=== PATIENT | male | born 1995 | race Caucasian/White ===

== ENCOUNTER 2018-12-31 12:32 | Inpatient (IN) | payer OTHER ==
[~2018-12-31] VITALS: Ht 180.3 cm; Wt 81.3 kg
[2018-12-31 13:28] LABS: BASO % 0 % (0-3); EOS % 0 % (0-3); HEMATOCRIT 43.3 % (39.0-53.0); HEMOGLOBIN 14.7 g/dL (13.0-17.5); LYMPH # 0.8 x10^3/uL (1.0-4.8); LYMPH % 6 % (24-48); MEAN CORPUSCULAR HEMOGLOBIN 30 pg (25-35); MEAN CORPUSCULAR HGB CONC 34 g/dL (31-37); MEAN CORPUSCULAR VOLUME 87 fL (79-100); MONO # 0.7 x10^3/uL (0.0-1.1); MONO % 5 % (0-9); NEUT # 12.7 x10^3/uL (1.8-7.7); NEUT % 89 % (31-73); PLATELET COUNT 249 x10^3/uL (140-400); RED BLOOD COUNT 4.97 x10^6/uL (4.30-5.70); RED CELL DISTRIBUTION WIDTH 14.2 % (11.5-14.5); WHITE BLOOD COUNT 14.3 x10^3/uL (4.0-11.0)
[2018-12-31 13:37] LABS: CALCIUM 8.6 mg/dL (8.5-10.1); CREATININE 0.9 mg/dL (0.7-1.3); GFR 103.7; POTASSIUM 4.2 mmol/L (3.5-5.1)
[2018-12-31 13:42] LABS: ALBUMIN 4.4 g/dL (3.4-5.0); ALBUMIN/GLOBULIN RATIO 1.2 (1.0-1.7); TOTAL BILIRUBIN 0.2 mg/dL (0.2-1.0)
[2018-12-31 13:57] LABS: BARBITURATES NEG (NEG); BENZODIAZEPINES NEG (NEG); CANNABINOIDS NEG (NEG); COCAINE NEG (NEG); METHADONE NEG (NEG); OPIATES NEG (NEG); PHENCYCLIDINE NEG (NEG)
[2018-12-31 13:58] LABS: AMPHETAMINE/METHAMPHETAMINE NEG (NEG)
[2018-12-31] MEDS ORDERED: VANCOMYCIN 1GM IVPB FOR OMNI 250 ML IV ONE (14:00)
[2018-12-31 14:27] LABS: % BANDS 8 % (0-9); % LYMPHS 7 % (24-48); % MONOS 4 % (0-10); % SEGS 81 % (35-66)
[2018-12-31 14:29] LABS: PLT ESTIMATE ADEQUATE (ADEQUATE)
[2018-12-31] MEDS ORDERED: fentaNYL PF VIAL 100 MCG/2 ML VIAL IV ONE (14:30)
[2018-12-31] MEDS ORDERED: VANCOMYCIN 2 GM in IV NORMAL SALINE 500ML BAG 500 ML IV ONE (14:30)
[2018-12-31] MEDS ORDERED: FAMOTIDINE 20 MG/2 ML VIAL IVP ONE (14:30)
[2018-12-31] MEDS ORDERED: IOHEXOL 300 MG/ML 100ML VIAL. IV ONE (14:30)
[2018-12-31] MEDS ORDERED: IV NORMAL SALINE 1000ML BAG 1,000 ML IV SCH ×2 (14:30→19:45)
[2018-12-31] MEDS ORDERED: methylPREDNISolone SOD SUCC PF 125 MG/2 ML VIAL. IV ONE (14:30)
[2018-12-31] MEDS ORDERED: PIPERACILLIN/TAZOBACTAM 3.375 GM in IV NORMAL SALINE 50ML 50 ML IV ONE (14:30)
[2018-12-31] MEDS ORDERED: diphenhydrAMINE 50 MG/ML VIAL IV ONE (14:30)
--- NOTE | 2018-12-31 14:40 | RAD ---
CT HEAD AND MAXILLOFACIAL with contrast Indication: Acute left facial edema, no known injury. Exposure: One or more of the following individualized dose reduction techniques were utilized for this examination: 1. Automated exposure control 2. Adjustment of the mA and/or kV according to patient size 3. Use of iterative reconstruction technique. Technique: Standard imaging obtained after intravenous contrast administration, as per request. Head: No evidence of acute intraparenchymal hematoma. However, difficult to confidently exclude intracranial or extra-axial hemorrhage given the postcontrast technique and intracranial enhancement. No obvious mass effect or midline shift. No abnormal enhancement is suggested. Ventricles and sulci are symmetric. No evidence of acute skull abnormality. Minimal mucosal thickening right maxillary sinus. Soft tissue swelling of the left periorbital region and extending into the left frontal scalp. Orbits appear grossly intact. IMPRESSION: 1. Swelling and density within the left periorbital tissues and left frontal scalp. Given the acute presentation, this could represent soft tissue edema, cellulitis or hemorrhage depending on clinical correlation. 2. No definite acute intracranial abnormality although intracranial hemorrhage could be difficult to exclude given postcontrast technique. If of concern, consider follow-up CT head after contrast clearance. Facial bones: Mild mucosal thickening of the right maxillary sinus. Left maxillary sinus, ethmoid sinuses, sphenoid sinus and frontal sinus are clear. No fluid levels are seen. Orbits appear unremarkable. No evidence of aggressive bone destruction. IMPRESSION: Mild right maxillary sinus mucosal thickening. Electronically signed by: Mo Puente MD (12/31/2018 2:37 PM) [facility]
--- NOTE | 2018-12-31 15:38 | PHYS DOC ---
Past Medical History Past Medical History: No Pertinent History Alcohol Use: Heavy Drug Use: Other Social History Narrative: PT USES DUSTER Adult General Chief Complaint Chief Complaint: facial swelling HPI HPI Patient is a 23 year old male who presents with complaining of facial swelling. Patient complaining of gradual onset of left facial and periorbital edema and pain that started about couple hours ago and gradually getting force and unable to open his left eye. Patient denies using any medication and and detergent, history of the same problem, shortness of breath, problems swallowing, fever and chills, chest pain. Patient brother -in-law states he was in his bed with a bottle of beer on his hand but was alert and oriented. Patient had history of cocaine abuse but denies using drugs today. [id number]-yst state he used duster spray today. Review of Systems Review of Systems Constitutional: Denies fever or chills [] Eyes: Denies change in visual acuity, redness, or eye pain [] HENT: Denies nasal congestion or sore throat [] Respiratory: Denies cough or shortness of breath [] Cardiovascular: No additional information not addressed in HPI [] GI: Denies abdominal pain, nausea, vomiting, bloody stools or diarrhea [] : Denies dysuria or hematuria [] Musculoskeletal: Denies back pain or joint pain [] Integument: Reports facial edema and erythema Neurologic: Denies headache, focal weakness or sensory changes [] Endocrine: Denies polyuria or polydipsia [] All other systems were reviewed and found to be within normal limits, except as documented in this note. Current Medications Current Medications Current Medications Medications (Trade) Dose Ordered Sig/Taylor Start Time Stop Time Status Last Admin Dose Admin Vancomycin HCl 250 ml @ 250 mls/hr 1X ONCE 12/31/18 14:00 12/31/18 14:59 UNV Allergies Allergies Allergies Coded Allergies Type Severity Reaction Last Updated Verified Sulfa (Sulfonamide Antibiotics) Allergy Unknown 12/31/18 Yes Physical Exam Physical Exam Constitutional: Well developed, well nourished, mild distress, non-toxic arnel earance, smell of alcohol on breath. [] HENT: Normocephalic, atraumatic, moderate to severe. Orbital edema and erythema extending to forehead and right cheek without sign of abscess. Eyes: PERRLA, EOMI, conjunctiva normal, no discharge. [] Neck: Normal range of motion, no tenderness, supple, no stridor. [] Cardiovascular:Heart rate regular rhythm, no murmur [] Lungs & Thorax: Bilateral breath sounds clear to auscultation [] Back: No tenderness, no CVA tenderness. [] Extremities: No tenderness, no cyanosis, no clubbing, ROM intact, no edema. [] Neurologic: Alert and oriented X 3, no focal deficits noted. [] Psychologic: Affect normal, judgement normal, mood normal. [] Current Patient Data Vital Signs Vital Signs Date Time Temp Pulse Resp B/P (MAP) Pulse Ox O2 Delivery O2 Flow Rate FiO2 12/31/18 12:55 97.6 74 20 153/86 (108) 95 Room Air 97.6 Lab Values Laboratory Tests Test 12/31/18 13:15 12/31/18 13:40 White Blood Count 14.3 x10^3/uL (4.0-11.0) H Red Blood Count 4.97 x10^6/uL (4.30-5.70) Hemoglobin 14.7 g/dL (13.0-17.5) Hematocrit 43.3 % (39.0-53.0) Mean Corpuscular Volume 87 fL (79-100) Mean Corpuscular Hemoglobin 30 pg (25-35) Mean Corpuscular Hemoglobin Concent 34 g/dL (31-37) Red Cell Distribution Width 14.2 % (11.5-14.5) Platelet Count 249 x10^3/uL (140-400) Neutrophils (%) (Auto) 89 % (31-73) H Lymphocytes (%) (Auto) 6 % (24-48) L Monocytes (%) (Auto) 5 % (0-9) Eosinophils (%) (Auto) 0 % (0-3) Basophils (%) (Auto) 0 % (0-3) Neutrophils # (Auto) 12.7 x10^3/uL (1.8-7.7) H Lymphocytes # (Auto) 0.8 x10^3/uL (1.0-4.8) L Monocytes # (Auto) 0.7 x10^3/uL (0.0-1.1) Eosinophils # (Auto) 0.0 x10^3/uL (0.0-0.7) Basophils # (Auto) 0.0 x10^3/uL (0.0-0.2) Segmented Neutrophils % 81 % (35-66) H Band Neutrophils % 8 % (0-9) Lymphocytes % 7 % (24-48) L Monocytes % 4 % (0-10) Platelet Estimate Adequate (ADEQUATE) Sodium Level 144 mmol/L (136-145) Potassium Level 4.2 mmol/L (3.5-5.1) Chloride Level 106 mmol/L (98-107) Carbon Dioxide Level 27 mmol/L (21-32) Anion Gap 11 (6-14) Blood Urea Nitrogen 9 mg/dL (8-26) Creatinine 0.9 mg/dL (0.7-1.3) Estimated GFR (Cockcroft-Gault) 103.7 BUN/Creatinine Ratio 10 (6-20) Glucose Level 98 mg/dL (70-99) Lactic Acid Level 2.6 mmol/L (0.4-2.0) H Calcium Level 8.6 mg/dL (8.5-10.1) Total Bilirubin 0.2 mg/dL (0.2-1.0) Aspartate Amino Transferase (AST) 23 U/L (15-37) Alanine Aminotransferase (ALT) 33 U/L (16-63) Alkaline Phosphatase 150 U/L (46-116) H Total Protein 8.0 g/dL (6.4-8.2) Albumin 4.4 g/dL (3.4-5.0) Albumin/Globulin Ratio 1.2 (1.0-1.7) Ethyl Alcohol Level 55 mg/dL (0-10) H Urine Opiates Screen Neg (NEG) Urine Methadone Screen Neg (NEG) Urine Barbiturates Neg (NEG) Urine Phencyclidine Screen Neg (NEG) Urine Amphetamine/Methamphetamine Neg (NEG) Urine Benzodiazepines Screen Neg (NEG) Urine Cocaine Screen Neg (NEG) Urine Cannabinoids Screen Neg (NEG) Urine Ethyl Alcohol Pos (NEG) Laboratory Tests 12/31/18 13:15 Laboratory Tests 12/31/18 13:15 EKG EKG [] Radiology/Procedures Radiology/Procedures [][facility] [address] [place] [address] IMAGING REPORT Signed PATIENT: ILDAREJIMary ACCOUNT: [id number] : 1995 LOCATION: ER AGE: 23 SEX: M EXAM STATUS: REG ER ORD. PHYSICIAN: NATALIYA MARTÍNEZ MD REASON: left facial edema and unknown history of injury PROCEDURE: CT HEAD AND MAXILLOFACIAL W/ CT HEAD AND MAXILLOFACIAL with contrast Indication: Acute left facial edema, no known injury. Exposure: One or more of the following individualized dose reduction techniques were utilized for this examination: 1. Automated exposure control 2. Adjustment of the mA and/or kV according to patient size 3. Use of iterative reconstruction technique. Technique: Standard imaging obtained after intravenous contrast administration, as per request. Head: No evidence of acute intraparenchymal hematoma. However, difficult to confidently exclude intracranial or extra-axial hemorrhage given the postcontrast technique and intracranial enhancement. No obvious mass effect or midline shift. No abnormal enhancement is suggested. Ventricles and sulci are symmetric. No evidence of acute skull abnormality. Minimal mucosal thickening right maxillary sinus. Soft tissue swelling of the left periorbital region and extending into the left frontal scalp. Orbits appear grossly intact. IMPRESSION: 1. Swelling and density within the left periorbital tissues and left frontal scalp. Given the acute presentation, this could represent soft tissue edema, cellulitis or hemorrhage depending on clinical correlation. 2. No definite acute intracranial abnormality although intracranial hemorrhage could be difficult to exclude given postcontrast technique. If of concern, consider follow-up CT head after contrast clearance. Facial bones: Mild mucosal thickening of the right maxillary sinus. Left maxillary sinus, ethmoid sinuses, sphenoid sinus and frontal sinus are clear. No fluid levels are seen. Orbits appear unremarkable. No evidence of aggressive bone destruction. IMPRESSION: Mild right maxillary sinus mucosal thickening. Electronically signed by: Mo Puente MD (12/31/2018 2:37 PM) [facility] DICTATED and SIGNED BY: MO PUENTE MD DATE: 12/31/18 8885 Course & Med Decision Making Course & Med Decision Making Pertinent Labs and Imaging studies reviewed. (See chart for details) Evaluation of patient showed 23-year-old male patient with sudden onset of left- sided facial edema and erythema. Patient had elevation of lactic acid and mild leukocytosis with unremarkable CT maxillofacial CT except for breakthrough sinusitis.Patient requiring admission for further evaluation and treatment. Discussed with Dr. Max who is in agreement with admission. Discussed findings and plan with patient and family, who acknowledge understanding and agreement. Dragon Disclaimer Dragon Disclaimer This electronic medical record was generated, in whole or in part, using a voice recognition dictation system. Departure Departure Impression: Primary Impression: Facial cellulitis Additional Impressions: Sepsis Alcohol abuse Disposition: 09 ADMITTED INPATIENT (at 1456) Admitting Physician: JOSE (Dr. Max accepted admission at 1456) Condition: GUARDED Referrals: UNKNOWN PCP NAME (PCP) Critical Care Time Critical care time was 70 minutes exclusive of procedures. Date and Time of Reassessment Date: Dec 31, 2018 Time: 16:00 Fluid Challenge Is the fluid challenge complet: No (patient did not have hypotension or tachycardia or fever or sign of dehydration.) IBW Target Volume Used: No BMI > 30: Yes Vital Signs Vital Signs: Vital Signs Date Time Temp Pulse Resp B/P (MAP) Pulse Ox O2 Delivery O2 Flow Rate FiO2 12/31/18 12:55 97.6 74 20 153/86 (108) 95 Room Air 97.6 Temperature Source: Oral Cardiovascular Pulse Rhythm: Regular Heart: Nml rate, reg. rhythm Capillary Refil Capillary Refill: Rt Hand < 3 seconds Peripheral Pulse Pulse Location: Radial Pulse Strength: Normal (2+) Pulse Assessment Method: NIBP Integumentary Skin Moisture: Dry Problem Qualifiers Additional Impressions: Sepsis Sepsis type: sepsis due to unspecified organism Sepsis acute organ dysfunction status: unspecified Qualified Codes: A41.9 - Sepsis, unspecified organism NATALIYA MARTÍNEZ MD Dec 31, 2018 15:38
[2018-12-31] MEDS ORDERED: ZIPRASIDONE IM 20 MG VIAL. IM ONE (16:45)
[2018-12-31] MEDS: fentaNYL PF VIAL 100 MCG/2 ML VIAL IV PRN ×4 (16:47→23:12)
[2018-12-31 18:20] VITALS: BP 132/85
[2018-12-31] MEDS ORDERED: PIP/TAZO PER PHARMACY MC PRN (18:30)
[2018-12-31 19:00] VITALS: BP 126/92
--- NOTE | 2018-12-31 19:51 | NUR ---
Pt. got to unit around 1820. This nurse got pt. comfortable and oriented pt. to room, unit, and hospital policies. VS taken. Pt. was alert to self, place, and situation. Pt. walked from WC to bed with steady gait. Pt. [id number] was at bedside at time of arrival on unit. Will continue to monitor.
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
[2018-12-31] MEDS: NICOTINE 21MG PATCH. TD SCH (22:30)
[2018-12-31] MEDS: VANCOMYCIN PER PHARMACY MC PRN (22:33)
--- NOTE | 2018-12-31 22:33 | NUR ---
Pharmacy Vancomycin Dosing Note S:Consulted to monitor and dose vancomycin started 12/31/18. O:GUTIERREZ GONSALES is a 23 year old M with Cellulitis . Height: 5 feet, 11 inches Weight: 81.036310 kg [place] Body Weight: 75.30 Adjusted Body Weight: 77.82 Dosing Weight: Actual Other Antibiotics: ZOSYN 3.375 GM Q6H LABS: Last BUN: 9 Last Creatinine: 0.9 Creatinine Clearance: 139 mL/min Last WBC: 14.3 Last Procalcitonin: Tmax (past 24 hours): Microbiology: I/O: Drug Levels: Last level: on at Last dose given 12/31/18 at 1600 Vancomycin Dosing: Loading Dose: 2000 mg x1 Dosing Weight: Actual Target Trough: 10-20 A: Based on: WT AND CRCL P: 1. Begin Vancomycin 1250 mg IV q8h 2. Follow up Trough level on 01/01/19 at 2330 3. Pharmacy will continue to monitor, follow and adjust therapy as needed. AKOSUA BURDEN RPH, 12/31/[id number] Signed: 12/31/18 at 223 by AKOSUA BURDEN RPH PHA
[2018-12-31] MEDS: VANCOMYCIN 1.25 GM in IV NORMAL SALINE 250ML 250 ML IV SCH (22:34)
[2018-12-31 23:01] VITALS: BP 139/81
[2018-12-31] MEDS: oxyCODONE/APAP 10/325 1 TAB TABLET PO PRN (23:09)
[2019-01-01] MEDS: fentaNYL PF VIAL 100 MCG/2 ML VIAL IV PRN ×6 (01:27→12:27)
[2019-01-01 03:07] VITALS: BP 137/70
[2019-01-01] MEDS: oxyCODONE/APAP 10/325 1 TAB TABLET PO PRN ×3 (04:03→12:28)
[2019-01-01] MEDS: PIPERACILLIN/TAZOBACTAM 3.375 GM in IV NORMAL SALINE 50ML 50 ML IV SCH ×2 (05:56→12:27)
[2019-01-01] MEDS: VANCOMYCIN 1.25 GM in IV NORMAL SALINE 250ML 250 ML IV SCH (08:17)
[2019-01-01] MEDS: NICOTINE 21MG PATCH. TD SCH (08:18)
[2019-01-01] MEDS ORDERED: methylPREDNISolone SOD SUCC PF 40 MG/ML VIAL. IV SCH (09:00)
[2019-01-01 11:59] VITALS: BP 125/71
[2019-01-01] MEDS: VANCOMYCIN PER PHARMACY MC PRN (14:24)
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
--- NOTE | 2019-01-01 14:50 | PDOC ---
[employer]GRESS NOTE Chief Complaint Chief Complaint Facial Cellulitis Sepsis Alcohol Abuse History of Present Illness History of Present Illness 01/01/19 Pt seen and examined at bedside Pt sitting up Injury and treatment plan discussed on phone with pt's mother, who is a physician's psychologist research assistant in [employer] RN Chart reviewed Vitals/I&O Vitals/I&O: Vital Signs Date Time Temp Pulse Resp B/P (MAP) Pulse Ox O2 Delivery O2 Flow Rate FiO2 01/01/19 11:59 98.3 77 18 125/71 (89) 96 Room Air 98.3 I & O 12/31/18 12/31/18 01/01/19 14:59 22:59 06:59 Intake Total 1050 ml 1000 ml Balance 1050 ml 1000 ml Physical Exam General: Alert, Oriented X3, Cooperative, No acute distress Heart: Regular rate, Normal S1, Normal S2, No murmurs Lungs: Clear Abdomen: Normal bowel sounds, Soft Extremities: No clubbing, No cyanosis, No edema Skin: No rashes, No breakdown, Other (cellulitis to forehead, nose, and eyelids) Labs Labs: Laboratory Tests Test 12/31/18 18:10 Lactic Acid Level 0.9 mmol/L (0.4-2.0) Review of Systems Review of Systems: No changes in vision No co SOB Assessment and Plan Assessmemt and Plan Problems Medical Problems: (1) Alcohol abuse Status: Acute (2) Facial cellulitis Status: Acute (3) Sepsis Status: Acute Assessment Facial Cellulitis Sepsis Alcohol Abuse Plan Continue IV zosyn Augmentin #14 875 mg PO BID Percocet #30 10 mg PRN Gentac eye drops OS QID Silvadene burn wash BID PT/OT Home Meds DVT Prophylaxis Comment Review of Relevant I have reviewed the following items john (where applicable) has been applied. Medications: Current Medications Medications (Trade) Dose Ordered Sig/Taylor Route PRN Reason Start Time Stop Time Status Last Admin Dose Admin Fentanyl Citrate (Fentanyl 2ml Vial) 50 mcg PRN Q2HR PRN IV PAIN 12/31/18 16:30 12/31/18 19:00 DC 12/31/18 19:00 Methylprednisolone Sodium Succinate (SOLU-Medrol 40MG VIAL) 30 mg DAILY IV 01/01/19 09:00 01/01/19 08:18 Piperacillin Sod/ Tazobactam Sod 3.375 gm/Sodium Chloride 50 ml @ 100 mls/hr Q6HRS IV 01/01/19 06:00 01/01/19 12:28 Vancomycin HCl (Vanco Per Pharmacy) 1 each PRN DAILY PRN MC SEE COMMENTS 12/31/18 19:45 01/01/19 14:25 Sodium Chloride 1,000 ml @ 75 mls/hr [id number] IV 12/31/18 19:45 12/31/18 21:06 Fentanyl Citrate (Fentanyl 2ml Vial) 50 mcg PRN Q2HR PRN IV SEVERE PAIN 7-10 12/31/18 21:00 01/01/19 12:28 Vancomycin HCl 1.25 gm/Sodium Chloride 250 ml @ 167 mls/hr Q8H IV 01/01/19 00:00 01/01/19 08:18 Nicotine (Nicoderm Cq 21mg) 1 patch DAILY TD 12/31/18 22:30 01/01/19 08:18 Oxycodone/ Acetaminophen (Percocet 10/325) 1 tab PRN Q4HRS PRN PO moderate pain 12/31/18 23:00 01/01/19 12:28 LUIS ENRIQUE GERBER III DO Jan 01, 2019 14:50
[2019-01-01] MEDS ORDERED: LACTOBACILLUS RHAMNOSUS GG 1 CAPSULE. PO SCH (21:00)
== END 2019-01-01 14:44 | disposition home or self-care (01) | DRG 872 ==
LOC: ER 12:32 → 5 SOUTH 14:15
PROVIDERS: ADMIT Internal Medicine; ATTEND Internal Medicine
DX: A41.9 Sepsis, unspecified organism (principal); L03.211 Cellulitis of face; F10.10 Alcohol abuse, uncomplicated; F17.210 Nicotine dependence, cigarettes, uncomplicated; T20.00XA Burn of unspecified degree of head, face, and neck, unspecified site, initial encounter; F14.10 Cocaine abuse, uncomplicated; X08.8XXA Exposure to other specified smoke, fire and flames, initial encounter; Y93.89 Activity, other specified; Y92.89 Other specified places as the place of occurrence of the external cause; Y99.8 Other external cause status
CPT/HCPCS: 36415; 70460; 70487; 80053; 80307; 83605; 85007; 85025; 87040; 96365; 96366; 96368; 96375; G0480; J1200; J2543; J2920; J2930; J3010; J3370; J3490; J7030; J7040; J7050; Q9967; 99291-25; G0378